=== PATIENT | female | born 1950 | race Caucasian/White ===

== ENCOUNTER 2020-08-29 03:25 | Inpatient (IN) ==
[2020-08-29] MEDS ORDERED: 0.9 % Sodium Chloride 1,000 ML IVC ONE ×2 (04:25→06:36)
[2020-08-29 04:38] LABS: Basophils # 0.1 K/mcL (0.0-0.2); Basophils % 0.6 %; Eosinophils % 0.2 %; Hematocrit 36.3 % (35.3-44.9); Hemoglobin 12.2 g/dL (11.5-15.4); Immature Granulocytes % 0.4 % (0-4); Lymphocytes # 1.2 K/mcL (0.6-4.6); Lymphocytes % 9.3 %; Mean Corpuscular HGB Conc 33.6 g/dL (31.6-35.5); Mean Corpuscular Volume 86.4 fL (83.0-100.0); Mean Platelet Volume 10.2 fL (9.4-12.4); Monocytes # 0.8 K/mcL (0.0-1.3); Monocytes % 6.2 %; Neutrophils # 10.3 K/mcL (1.6-8.9); Platelet Count 191 K/mcL (140-400); Red Cell Distribution Width 13.3 % (11.5-14.5); Segmented Neutrophils % 83.3 %; White Blood Count 12.4 K/mcL (4.3-11.1)
[2020-08-29 04:49] LABS: Albumin 3.4 g/dL (3.5-5.7); Albumin/Globulin Ratio 1.2 (1.1-2.2); Bilirubin,Total 0.5 mg/dL (0.3-1.0); Calcium 8.3 mg/dL (8.6-10.3); Globulin 2.9 g/dL (2.4-3.5); Potassium 3.5 mEq/L (3.5-5.1); Total Protein 6.3 g/dL (6.4-8.9)
[2020-08-29 05:29] LABS: Bacteria,Urine Many per hpf (None-Few); Bilirubin,Urine Negative (Negative); Blood,Urine Small (Negative); Clarity,Urine Ex.Turbid (Clear); Color,Urine Yellow (Yellow); Glucose,Urine (UA) Normal (Normal); Ketones,Urine Negative (Negative); Leukocyte Esterase,Urine Large (Negative); Mucus,Urine Few per lpf (None-Few); Nitrite,Urine Positive (Negative); Protein,Urine 100 mg/dL (Neg-Trace); Specific Gravity,Urine 1.014 (1.010-1.025); Squamous Epithelial Cell,Urine Few per hpf (None-Few); Urobilinogen,Urine Normal (Normal); WBC,Urine TNTC per hpf (0-3)
[2020-08-29] MEDS ORDERED: cefTRIAXone 1,000 MG in 0.9 % Sodium Chloride Mini Bag 100 ML IVPB ONE (05:54)
[2020-08-29] MEDS ORDERED: MetroNIDAZOLE 500 MG/100 ML 500 MG/100 ML BAG IVPB ONE (06:34)
[2020-08-29] MEDS ORDERED: Acetaminophen 325 MG TABLET PO PRN (08:49)
[2020-08-29] MEDS ORDERED: Naloxone 0.4 MG/ML INJ IVP PRN (08:49)
[2020-08-29] MEDS ORDERED: Ondansetron 4 MG/2 ML VIAL IVP PRN (08:49)
[2020-08-29] MEDS ORDERED: Dextrose Gel 15 GM/37.5 ML TUBE PO PRN ×2 (08:54)
[2020-08-29] MEDS ORDERED: D5% in Water 1,000 ML IVC PRN (08:54)
[2020-08-29] MEDS ORDERED: *HR* Dextrose 50 % in Water (Vial) 50 ML VIAL IVP PRN (08:54)
[2020-08-29] MEDS ORDERED: ALPRAZolam 0.5 MG TABLET PO PRN (08:56)
[2020-08-29] MEDS: Ringers Solution, Lactated 1,000 ML IVC SCH ×2 (09:59→21:10)
[2020-08-29] MEDS: Gabapentin 100 MG CAPSULE PO SCH ×3 (09:59→20:42)
[2020-08-29] MEDS: Aspirin Enteric Coated 81 MG Tablet PO SCH (10:00)
[2020-08-29] MEDS: Perphenazine 2 MG TABLET PO SCH (10:18)
[2020-08-29] MEDS: Insulin LISPRO 300 UNITS/3 ML VIAL SUBQ SCH ×3 (11:46→20:43)
[2020-08-29] MEDS: Propranolol LA (24 HR) 80 MG CAP.SA.24H PO SCH ×2 (12:01→20:42)
[2020-08-29] MEDS: *HR* Heparin 5,000 UNIT/ML VIAL SQ SCH ×2 (15:05→20:41)
[2020-08-29] MEDS: MetroNIDAZOLE 500 MG/100 ML 500 MG/100 ML BAG IVPB SCH ×2 (15:05→23:15)
[2020-08-30] MEDS: *HR* Heparin 5,000 UNIT/ML VIAL SQ SCH ×3 (06:00→21:06)
[2020-08-30 06:03] LABS: Basophils # 0.1 K/mcL (0.0-0.2); Basophils % 0.7 %; Eosinophils # 0.1 K/mcL (0.0-0.6); Eosinophils % 0.8 %; Hemoglobin 11.9 g/dL (11.5-15.4); Immature Granulocytes % 0.4 % (0-4); Lymphocytes # 1.2 K/mcL (0.6-4.6); Lymphocytes % 13.3 %; Mean Corpuscular HGB Conc 32.2 g/dL (31.6-35.5); Mean Corpuscular Hemoglobin 28.7 pg (28.0-33.3); Mean Corpuscular Volume 89.4 fL (83.0-100.0); Mean Platelet Volume 9.7 fL (9.4-12.4); Monocytes # 0.7 K/mcL (0.0-1.3); Monocytes % 7.4 %; Platelet Count 175 K/mcL (140-400); Red Blood Count 4.14 M/mcL (3.82-4.97); Red Cell Distribution Width 13.7 % (11.5-14.5); Segmented Neutrophils % 77.4 %
[2020-08-30 06:29] LABS: Calcium 8.1 mg/dL (8.6-10.3); Magnesium 1.5 mg/dL (1.6-2.6); Phosphorous 2.9 mg/dL (2.7-4.5); Potassium 3.7 mEq/L (3.5-5.1)
[2020-08-30 08:07] LABS: Adenovirus F 40/41 PCR Not detected (Not detect); Astrovirus PCR Not detected (Not detect); C.difficile Toxin A/B Gene PCR Not detected (Not detect); Campylobacter by PCR Not detected (Not detect); Cryptosporidium by PCR Not detected (Not detect); Cyclospora cayetanensis PCR Not detected (Not detect); E. coli O157 by PCR Not detected (Not detect); Entamoeba histolytica PCR Not detected (Not detect); Enteroaggregative E.coli(EAEC) Not detected (Not detect); Enteropathogenic E.coli(EPEC) Not detected (Not detect); Enterotoxigenic E.coli (ETEC) Not detected (Not detect); Giardia lamblia PCR Not detected (Not detect); Norovirus GI/GII PCR Not detected (Not detect); Plesiomonas shigelloides PCR Not detected (Not detect); Rotavirus A PCR Not detected (Not detect); Sapovirus PCR Not detected (Not detect); Shig/EnteroinvasiveE coli EIEC Not detected (Not detect); Vibrio PCR Not detected (Not detect); Vibrio cholerae PCR Not detected (Not detect); Yersinia enterocolitica PCR Not detected (Not detect)
[2020-08-30 08:16] LABS: Salmonella PCR DETECTED (Not detect); Shigalike tox-prod E coli STEC DETECTED (Not detect)
[2020-08-30] MEDS: Gabapentin 100 MG CAPSULE PO SCH ×3 (09:00→21:05)
[2020-08-30] MEDS: Propranolol LA (24 HR) 80 MG CAP.SA.24H PO SCH ×2 (09:00→21:06)
[2020-08-30] MEDS: Perphenazine 2 MG TABLET PO SCH (09:00)
[2020-08-30] MEDS: Aspirin Enteric Coated 81 MG Tablet PO SCH (09:00)
[2020-08-30] MEDS: MetroNIDAZOLE 500 MG/100 ML 500 MG/100 ML BAG IVPB SCH ×2 (09:07→16:41)
[2020-08-30] MEDS: Insulin LISPRO 300 UNITS/3 ML VIAL SUBQ SCH ×4 (09:07→21:03)
[2020-08-30] MEDS ORDERED: Famotidine 20 MG TABLET PO SCH (21:00)
[2020-08-31] MEDS: MetroNIDAZOLE 500 MG/100 ML 500 MG/100 ML BAG IVPB SCH (01:43)
[2020-08-31] MEDS: *HR* Heparin 5,000 UNIT/ML VIAL SQ SCH (05:37)
[2020-08-31 06:56] LABS: Calcium 8.5 mg/dL (8.6-10.3); Potassium 3.8 mEq/L (3.5-5.1)
[2020-08-31] MEDS ORDERED: [UNRECOGNIZED DRUG - OTHER] PO SCH (09:00)
[2020-08-31] MEDS: Aspirin Enteric Coated 81 MG Tablet PO SCH (09:27)
[2020-08-31] MEDS: Gabapentin 100 MG CAPSULE PO SCH (09:27)
[2020-08-31] MEDS: Perphenazine 2 MG TABLET PO SCH (09:28)
[2020-08-31] MEDS: Insulin LISPRO 300 UNITS/3 ML VIAL SUBQ SCH (09:28)
[2020-08-31] MEDS: Propranolol LA (24 HR) 80 MG CAP.SA.24H PO SCH (09:28)
[2020-08-31 10:38] VITALS: BP 126/74
== END 2020-08-31 13:10 | disposition home or self-care (01) | DRG 872 ==
LOC: 3ANU 03:25 → EMEROOARM 03:25 → SUATTDRO 06:39 → 3ANU 08:22
PROVIDERS: ADMIT Family Medicine; ATTEND Internal Medicine